=== PATIENT | female | born 1995 | race Two or more races ===

== ENCOUNTER 2024-02-13 18:45 | Emergency (ER) | payer OTHER ==
[~2024-02-13] VITALS: Ht 170.2 cm; Wt 125.6 kg
[2024-02-13 19:00] VITALS: BP 135/93; TEMP 97.9; O2SAT 99
[2024-02-13] MEDS ORDERED: FLUORESCEIN SODIUM OPHTH 1 EA STRIP ONE (19:08)
[2024-02-13] MEDS ORDERED: TETRAcaine 5 ML BOTTLE ONE (19:09)
--- NOTE | 2024-02-13 19:14 | NUR ---
Dr Darby at pt's bedside for eval
--- NOTE | 2024-02-13 19:14 | NUR ---
left eye redness and pain s/p accidentaly hit by a splash of nail glue
[2024-02-13] MEDS ORDERED: ERYT3.5O9 LEFTEYE (19:39)
--- NOTE | 2024-02-13 19:49 | NUR ---
DCPatient discharged to home in stable condition. Written and verbal after care instructions given. Patient verbalizes understanding of instruction.
--- NOTE | 2024-02-13 19:49 | NUR ---
Patient discharged to home in stable condition. Written and verbal after care instructions given. Patient verbalizes understanding of instruction.
== END 2024-02-13 19:49 | disposition home or self-care (01) ==
LOC: ER 18:50
DX: T15.12XA Foreign body in conjunctival sac, left eye, initial encounter (principal); Y92.89 Other specified places as the place of occurrence of the external cause